=== PATIENT | female | born 2000 | race African-American/Black ===

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

== ENCOUNTER 2022-01-04 13:46 | Emergency (ER) | payer SELFPAY ==
[~2022-01-04] VITALS: Ht 157.5 cm; Wt 55.9 kg
[~2022-01-04 13:46] MED LIST: FLOXIN OTIC DROP5 ML OT
[2022-01-04 14:00] VITALS: BP 115/58; TEMP 97.9
[2022-01-04] MEDS ORDERED: AMOXICILLIN 8751 TAB PO (14:13)
[2022-01-04] MEDS ORDERED: CIPRODEX OT (14:13)
[2022-01-04 14:23] VITALS: PULSE 70
== END 2022-01-04 14:25 | disposition home or self-care (01) ==
LOC: COL.ER 13:46
DX: H66.92 Otitis media, unspecified, left ear (principal); H72.92 Unspecified perforation of tympanic membrane, left ear